=== PATIENT | male | born 1970 | race Caucasian/White ===

== ENCOUNTER 2024-10-20 03:13 | Inpatient (IN) | payer MEDICAID ==
[~2024-10-20] VITALS: Ht 180.3 cm; Wt 106.0 kg
[2024-10-20] MEDS: LORazepam 1 MG TABLET PO ONE (03:54)
[2024-10-20] MEDS: OLANZapine 5 MG TABLET PO ONE (04:30)
[2024-10-20] MEDS: OLANZapine 10 MG TABLET PO ONE (07:21)
[2024-10-20] MEDS ORDERED: LOSA-381 PO (08:07)
[2024-10-20] MEDS ORDERED: AMIO200T68 PO (08:07)
[2024-10-20] MEDS ORDERED: CLOP75TA60 PO (08:07)
[2024-10-20] MEDS ORDERED: FERR325T27 PO (08:07)
[2024-10-20] MEDS ORDERED: EMPA10TA3 PO (08:09)
[2024-10-20] MEDS ORDERED: METO25XL PO (08:09)
[2024-10-20] MEDS ORDERED: ATOR40TA28 PO (08:09)
[2024-10-20] MEDS: DiphenhydrAMINE HCL 50 MG/ML VIAL IM ONE (08:37)
[2024-10-20] MEDS: HALOPERIDOL LACTATE 5 MG/ML VIAL IM ONE (08:37)
[2024-10-20] MEDS: LORazepam 2 MG/ML VIAL IM ONE (08:38)
[2024-10-20 08:44] LABS: COVID AG,FIA SOURCE NASAL SWAB
[2024-10-20 09:10] LABS: ANION GAP 10 mmol/L (8-16); CALCIUM, TOTAL 8.7 mg/dL (8.8-10.5); CARBON DIOXIDE 22 mmol/L (22-29); CHLORIDE 106 mmol/L (98-107); CREATININE 2.26 mg/dL (0.60-1.30); GLOMERULAR FILTR. RATE CALC 30 mL/min (>60); GLUCOSE,RANDOM 94 mg/dL (70-110); POTASSIUM 3.9 mmol/L (3.5-5.1); SODIUM SERUM 138 mmol/L (136-145); UREA NITROGEN, BLOOD 19 mg/dL (7-18)
[2024-10-20 09:10] LABS: SARS-COV2 (COVID) ANTIGEN,FIA Negative (Negative)
[2024-10-20 09:16] LABS: BASOPHILS % (AUTO) 1.1 % (0.0-2.0); EOSINOPHILS % (AUTO) 4.8 % (1.0-6.0); HEMATOCRIT 38.4 % (41-53); HEMOGLOBIN 12.8 g/dL (13.5-17.5); LYMPHOCYTES # (AUTO) 1.3 K/uL (1.0-4.8); LYMPHOCYTES % (AUTO) 15.9 % (22.0-44.0); MEAN CORPUSCULAR HEMOGLOBIN 30.7 pg (26.0-34.0); MEAN CORPUSCULAR HGB CONC 33.2 G/dL (31.0-37.0); MEAN CORPUSCULAR VOLUME 92 fL (80-100); MONOCYTES % (AUTO) 12.6 % (2.0-9.0); NEUTROPHILS # (AUTO) 5.5 K/uL (1.8-7.7); NEUTROPHILS % (AUTO) 65.6 % (40.0-70.0); PLATELET COUNT (AUTO) 213 K/uL (150-450); RED BLOOD CELL COUNT(AUTO) 4.16 MIL/uL (4.50-5.90); RED CELL DISTRIBUTION WIDTH 15.7 % (11.5-14.5); WHITE BLOOD COUNT (AUTO) 8.3 K/uL (4.5-11.0)
[2024-10-20 09:23] LABS: ALCOHOL, BLOOD (SERUM) < 3 mg/dL (0-10)
[2024-10-20 09:41] LABS: CREATINE KINASE, TOTAL ONLY 663 U/L (39-308)
[2024-10-20 09:49] LABS: TROPONIN I-HIGH SENSITIVITY 957 ng/L (<76)
[2024-10-20] MEDS: ASPIRIN 300 MG RECTAL SUPPOSITORY PR ONE (10:29)
[2024-10-20] MEDS ORDERED: ACETAMINOPHEN 325 MG TABLET PO PRN (10:45)
[2024-10-20] MEDS ORDERED: ONDANSETRON HCL 4 MG/2 ML VIAL IVP PRN (10:45)
[2024-10-20] MEDS ORDERED: BISACODYL 10 MG RECTAL RECTAL SUPPOSITORY PR PRN (10:45)
[2024-10-20 10:53] LABS: TROPONIN I-HIGH SENSITIVITY 873 ng/L (<76)
[2024-10-20] MEDS: SODIUM CHLORIDE 0.9% 1,000 ML IV SCH (11:11)
[2024-10-20] MEDS: SODIUM CHLORIDE 0.9% 2,000 ML IV ONE (11:12)
[2024-10-20] MEDS: HEPARIN SODIUM,PORCINE 5,000 UNITS/ML VIAL SQ SCH (15:29)
[2024-10-20 17:42] VITALS: BP 129/91; PULSE 83; RESP 18; TEMP 97.1; O2SAT 95
[2024-10-20 18:00] VITALS: BP 129/91; PULSE 83; RESP 16; TEMP 97.1; O2SAT 95
[2024-10-20] MEDS: DOCUSATE SODIUM 100 MG CAPSULE PO SCH (20:50)
[2024-10-20 22:12] VITALS: BP 131/75; PULSE 85; RESP 19; TEMP 98.2; O2SAT 95
[2024-10-21 00:08] VITALS: BP 137/87; PULSE 89; RESP 18; TEMP 98; O2SAT 96
[2024-10-21 06:27] VITALS: BP 119/73; PULSE 88; RESP 18; TEMP 98.5; O2SAT 94
[2024-10-21 08:15] VITALS: BP 128/78; PULSE 87; RESP 18; TEMP 98.1; O2SAT 95
[2024-10-21] MEDS: PANTOPRAZOLE SODIUM 40 MG/VIAL IVP SCH (08:20)
[2024-10-21 12:00] VITALS: BP 118/73; PULSE 94; RESP 18; TEMP 97.8; O2SAT 96
[2024-10-21 16:00] VITALS: BP 124/75; PULSE 96; RESP 18; TEMP 98.4; O2SAT 98
[2024-10-21 20:00] VITALS: BP 130/70; PULSE 92; RESP 16; TEMP 98.3; O2SAT 94
[2024-10-22] VITALS: BP 129/74; PULSE 94; RESP 16; TEMP 98.6; O2SAT 99
[2024-10-22 04:00] VITALS: BP 137/75; PULSE 97; RESP 18; TEMP 98.3; O2SAT 95
[2024-10-22 07:52] VITALS: BP 128/71; PULSE 94; RESP 20; TEMP 97.7; O2SAT 96
[2024-10-22] MEDS: CLOPIDOGREL BISULFATE 75 MG TABLET PO SCH (08:25)
[2024-10-22] MEDS: METOPROLOL SUCCINATE 25 MG ER TABLET PO SCH (08:25)
[2024-10-22 09:43] LABS: ANION GAP 11 mmol/L (8-16); CALCIUM, TOTAL 9.2 mg/dL (8.8-10.5); CARBON DIOXIDE 21 mmol/L (22-29); CHLORIDE 108 mmol/L (98-107); CREATININE 1.62 mg/dL (0.60-1.30); GLOMERULAR FILTR. RATE CALC 44 mL/min (>60); GLUCOSE,RANDOM 127 mg/dL (70-110); POTASSIUM 4.1 mmol/L (3.5-5.1); SODIUM SERUM 140 mmol/L (136-145); UREA NITROGEN, BLOOD 14 mg/dL (7-18)
[2024-10-22 09:44] LABS: TROPONIN I-HIGH SENSITIVITY 963 ng/L (<76)
[2024-10-22 11:37] VITALS: BP 126/50; PULSE 86; RESP 18; TEMP 97.9; O2SAT 95
[2024-10-22] MEDS: ASPIRIN 81 MG DR TABLET PO SCH (11:47)
[2024-10-22 16:00] VITALS: BP 133/94; PULSE 90; RESP 18; TEMP 97.7; O2SAT 95
[2024-10-22 20:02] VITALS: BP 139/101; PULSE 88; RESP 20; TEMP 98.1; O2SAT 95
[2024-10-23 00:12] VITALS: BP 121/70; PULSE 89; RESP 18; TEMP 98.8; O2SAT 97
[2024-10-23 05:24] VITALS: BP 138/90; PULSE 89; RESP 18; TEMP 98.5; O2SAT 98
[2024-10-23 06:46] LABS: EOSINOPHILS % (AUTO) 3.4 % (1.0-6.0); HEMATOCRIT 41.2 % (41-53); HEMOGLOBIN 13.7 g/dL (13.5-17.5); LYMPHOCYTES # (AUTO) 1.9 K/uL (1.0-4.8); LYMPHOCYTES % (AUTO) 23.3 % (22.0-44.0); MEAN CORPUSCULAR HEMOGLOBIN 30.8 pg (26.0-34.0); MEAN CORPUSCULAR HGB CONC 33.2 G/dL (31.0-37.0); MEAN CORPUSCULAR VOLUME 93 fL (80-100); MONOCYTES # (AUTO) 0.8 K/uL (0.1-1.0); MONOCYTES % (AUTO) 9.5 % (2.0-9.0); NEUTROPHILS # (AUTO) 5.1 K/uL (1.8-7.7); NEUTROPHILS % (AUTO) 62.8 % (40.0-70.0); PLATELET COUNT (AUTO) 253 K/uL (150-450); RED BLOOD CELL COUNT(AUTO) 4.44 MIL/uL (4.50-5.90); RED CELL DISTRIBUTION WIDTH 15.9 % (11.5-14.5); WHITE BLOOD COUNT (AUTO) 8.1 K/uL (4.5-11.0)
[2024-10-23 07:22] LABS: ALANINE AMINOTRANSFERASE 30 U/L (12-78); ALKALINE PHOSPHATASE 150 U/L (46-116); ANION GAP 8 mmol/L (8-16); ASPARTATE AMINOTRANSFERASE 30 U/L (15-37); BILIRUBIN,TOTAL 0.8 mg/dL (0.1-1.0); CALCIUM, TOTAL 9.2 mg/dL (8.8-10.5); CARBON DIOXIDE 24 mmol/L (22-29); CHLORIDE 104 mmol/L (98-107); CREATININE 1.61 mg/dL (0.60-1.30); GLOMERULAR FILTR. RATE CALC 45 mL/min (>60); GLUCOSE,RANDOM 88 mg/dL (70-110); POTASSIUM 4.2 mmol/L (3.5-5.1); SODIUM SERUM 136 mmol/L (136-145); TOTAL PROTEIN, SERUM 7.3 g/dL (6.4-8.2); UREA NITROGEN, BLOOD 15 mg/dL (7-18)
[2024-10-23 07:28] LABS: TROPONIN I-HIGH SENSITIVITY 750 ng/L (<76)
[2024-10-23 10:12] VITALS: BP 145/98; PULSE 85; RESP 18; TEMP 97.6; O2SAT 94
[2024-10-23] MEDS: MAGNESIUM OXIDE 400 MG TABLET PO ONE (11:20)
[2024-10-23] MEDS: ATORVASTATIN CALCIUM 40 MG TABLET PO SCH (11:27)
[2024-10-23] MEDS ORDERED: ASPI-1444 PO (13:05)
== END 2024-10-23 16:40 | disposition home or self-care (01) | DRG 812 ==
LOC: EMS 03:13 → EDH 10:32 → 5S 17:36
PROVIDERS: ADMIT Internal Medicine; ATTEND Internal Medicine
DX: T43.651A Poisoning by methamphetamines accidental (unintentional), initial encounter (principal); G92.8 Other toxic encephalopathy; I21.A1 Myocardial infarction type 2; N17.9 Acute kidney failure, unspecified; F29 Unspecified psychosis not due to a substance or known physiological condition; I47.20 Ventricular tachycardia, unspecified; E66.9 Obesity, unspecified; Z20.822 Contact with and (suspected) exposure to COVID-19; F15.10 Other stimulant abuse, uncomplicated; I07.1 Rheumatic tricuspid insufficiency; I25.10 Atherosclerotic heart disease of native coronary artery without angina pectoris; N18.9 Chronic kidney disease, unspecified; Z53.20 Procedure and treatment not carried out because of patient's decision for unspecified reasons; Z87.820 Personal history of traumatic brain injury; Z95.5 Presence of coronary angioplasty implant and graft; Z68.32 Body mass index [BMI] 32.0-32.9, adult; Y92.9 Unspecified place or not applicable
CPT/HCPCS: 71045; 80048; 80053; 82550; 83735; 83880; 84132; 84484; 85025; 92610; 93005; 93306; 99285; G0378; G0480; J1200; J1630; J1644; J2060; J2470; J7030; 36415-L1; 36415-TC

== ENCOUNTER 2024-10-26 16:14 | Emergency (ER) | payer MEDICAID ==
[~2024-10-26] VITALS: Ht 180.3 cm; Wt 106.0 kg
[~2024-10-26 16:14] MED LIST: AMIO200T68 PO; ASPI-1444 PO; ATOR40TA28 PO; CLOP75TA60 PO; EMPA10TA3 PO; FERR325T27 PO; LOSA-381 PO; METO25XL PO
[2024-10-26 16:15] VITALS: TEMP 98.2
[2024-10-26 16:30] VITALS: BP 125/88; PULSE 94; RESP 16; O2SAT 98
[2024-10-26] MEDS: SULFAMETHOX/TRIMETH DS 800-160 MG/TABLET PO ONE (16:44)
[2024-10-26] MEDS: CEPHALEXIN MONOHYDRATE 500 MG CAPSULE PO ONE (16:44)
[2024-10-26] MEDS ORDERED: CEPH-558 PO (16:51)
[2024-10-26] MEDS ORDERED: SULF-261 PO (16:51)
== END 2024-10-26 17:00 | disposition home or self-care (01) ==
LOC: EMS 16:20
DX: L03.115 Cellulitis of right lower limb (principal); I10 Essential (primary) hypertension; E78.00 Pure hypercholesterolemia, unspecified; Z79.02 Long term (current) use of antithrombotics/antiplatelets; Z79.82 Long term (current) use of aspirin; Z79.899 Other long term (current) drug therapy
CPT/HCPCS: 99284; Z7502; Z7610

== ENCOUNTER 2024-12-01 11:45 | Emergency (ER) | payer MEDICAID ==
[~2024-12-01] VITALS: Ht 193 cm; Wt 111.4 kg
[~2024-12-01 11:45] MED LIST changes: +CEPH-558 PO; +CLOP75TA33 PO; -CLOP75TA60 PO; +SULF-261 PO
[2024-12-01 11:51] VITALS: BP 119/64; PULSE 94; RESP 20; TEMP 98.1; O2SAT 100
[2024-12-01 12:32] LABS: BASOPHILS % (AUTO) 0.9 % (0.0-2.0); EOSINOPHILS % (AUTO) 1.4 % (1.0-6.0); HEMATOCRIT 45.6 % (41-53); LYMPHOCYTES # (AUTO) 1.6 K/uL (1.0-4.8); LYMPHOCYTES % (AUTO) 18.8 % (22.0-44.0); MEAN CORPUSCULAR HEMOGLOBIN 30.5 pg (26.0-34.0); MEAN CORPUSCULAR VOLUME 93 fL (80-100); MONOCYTES # (AUTO) 0.9 K/uL (0.1-1.0); MONOCYTES % (AUTO) 10.9 % (2.0-9.0); NEUTROPHILS # (AUTO) 5.6 K/uL (1.8-7.7); PLATELET COUNT (AUTO) 245 K/uL (150-450); RED BLOOD CELL COUNT(AUTO) 4.93 MIL/uL (4.50-5.90); RED CELL DISTRIBUTION WIDTH 14.9 % (11.5-14.5); WHITE BLOOD COUNT (AUTO) 8.3 K/uL (4.5-11.0)
[2024-12-01 12:41] LABS: CALCIUM, TOTAL 9.1 mg/dL (8.8-10.5); CREATININE 1.7 mg/dL (0.60-1.30)
[2024-12-01] MEDS ORDERED: PRED-554 PO (13:12)
[2024-12-01] MEDS: PredniSONE 20 MG TABLET PO ONE (13:13)
[2024-12-01] MEDS: ACETAMINOPHEN 325 MG TABLET PO ONE (13:14)
== END 2024-12-01 13:40 | disposition home or self-care (01) ==
LOC: EMS 11:45
DX: M10.9 Gout, unspecified (principal); I12.9 Hypertensive chronic kidney disease with stage 1 through stage 4 chronic kidney disease, or unspecified chronic kidney disease; N18.9 Chronic kidney disease, unspecified; E78.00 Pure hypercholesterolemia, unspecified; Z79.82 Long term (current) use of aspirin; Z79.02 Long term (current) use of antithrombotics/antiplatelets; Z79.899 Other long term (current) drug therapy
CPT/HCPCS: 99283; 80048; 85025; 36415; J7512